=== PATIENT | female | born 1985 | race Hispanic/Latino ===

== ENCOUNTER 2023-07-22 16:17 | Emergency (ER) | payer SELFPAY ==
[2023-07-22 16:28] VITALS: BP 134/80
[2023-07-22] MEDS: NSS 1000 IV (18:37)
[2023-07-22] MEDS: ZOFRAN 4 MG IV (18:37)
[2023-07-22 18:47] LABS: % Basophils 0.2 % (0-2); % Eosinophils 0.2 % (0-6); % Immature Granulocytes 0.2 % (0-0.5); % Lymphocytes 15.2 % (20.5-51.1); % Monocytes 2.4 % (1.7-9.3); % Neutrophils 81.8 % (42.2-75.2); Absolute Lymphocytes 1.6 10^3/uL (1.2-3.4); Absolute Monocytes 0.3 10^3/uL (0.1-0.6); Absolute Neutrophils 8.7 10^3/uL (1.4-6.5); Hematocrit 30.3 % (37.0-47.0); Hemoglobin 9.4 g/dL (12.0-16.0); Mean Corpuscular Hgb 19.5 pg (27.0-31.0); Mean Platelet Volume 10.6 fL (7.4-10.4); Nucleated Red Blood Cells % 0 %; Platelet Count 293 10^3/uL (130-400); Red Blood Cell Count 4.81 10^6/uL (4.20-5.40); Red Cell Dist. Width 19.9 % (11.5-14.5); White Blood Cell Count 10.7 10^3/uL (4.8-10.8)
[2023-07-22 18:59] LABS: HCG, Serum Qualitative Screen Negative
[2023-07-22 19:08] LABS: ALT (SGPT) 20 U/L (0-35); AST (SGOT) 25 U/L (14-36); Albumin 4.2 g/dl (3.5-5.0); Alkaline Phosphatase 122 U/L (38-126); Blood Urea Nitrogen 14 mg/dl (7-17); Carbon Dioxide 23 mmol/L (22-30); Chloride 100 mmol/L (98-107); Glucose 235 mg/dl (70-99); Potassium 3.7 mmol/L (3.5-5.1); Sodium 133 mmol/L (135-145); Total Bilirubin 1.5 mg/dl (0.2-1.3); Total Protein 7.4 g/dl (6.3-8.2); eGFR > 60.00
[2023-07-22 19:35] LABS: Lipase 63 U/L (23-300)
[2023-07-22 20:43] LABS: Urine Albumin Negative (Neg - Trace); Urine Bilirubin Negative (Negative); Urine Character Clear (Clear); Urine Color Straw; Urine Glucose 3+ (Negative); Urine Ketone Negative (Negative); Urine Leukocyte Trace (Negative); Urine Nitrite Negative (Negative); Urine Occult Blood Negative (Negative); Urine Specific Gravity 1.015 (<1.030); Urine Urobilinogen Negative (Neg - 1+)
[2023-07-22 20:58] LABS: Urine Bacteria Few (Negative); Urine Red Blood Cell 0-2 /HPF (0-2); Urine White Cell 0-2 /HPF (0-5)
[2023-07-22 21:14] VITALS: BP 108/59
[2023-07-22 21:32] VITALS: BP 108/59
--- NOTE | 2023-07-22 23:20 | ED.GENMED ---
History of Present Illness
General
Chief Complaint: Abdominal Symptoms
Source: patient
Exam Limitations: none
Time Seen by Provider: 07/22/23 18:21
Nursing documentation reviewed up to this point in time: agreed with
Travel History
Have you had any contact with someone who has COVID-19?: No
Do you have any symptoms of coronavirus? Fever > 100 degrees, chills, cough, shortness of breath, sore throat, loss of taste or smell, muscle aches, or headache?: No
History of Present Illness
History of Present Illness:
Patient to ED with complaint of vomiting since this AM. Reports upper abd. pain. No fever/chills. Brought to ED by family for eval.
Past History
Past History
ED Past Medical History: IDDM
Review of Systems
Review of Systems
Allergies reviewed?: Yes
All Other Systems: ROS reviewed and negative except as documented in HPI and ROS
Constitutional: Reports no symptoms
EENT: Reports no symptoms
Respiratory: Reports no symptoms
Cardiac: Reports no symptoms
ABD/GI: Reports abdominal pain, nausea and vomiting
: Reports no symptoms
Musculoskeletal: Reports no symptoms
Skin: Reports no symptoms
Neurological: Reports no symptoms
Psychiatric: Reports no symptoms
Phy Exam
General Physical Exam
General Presentation: well appearing and moderate distress
General age: appears stated age
General Skin: warm and dry
General Habitus: normal
General Mental: alert
Pulmonary Exam
Pulmonary Exam: lungs clear and no respiratory distress
Gastrointestinal Exam
Gastrointestinal Exam: normal bowel sounds, soft, no organomegaly, non distended and no cva tenderness
Palpation: left upper quadrant: Moderate tenderness, left lower quadrant: No tenderness, right upper quadrant: Moderate tenderness and right lower quadrant: No tenderness
Musculoskeletal Exam
Musculoskeletal Exam: full ROM and neuro vasc intact
Skin Exam
Skin Exam: normal color, warm/dry and no rash
Psychiatric Exam
Psychiatric Exam: normal mood/affect
Course
Orders/Labs/Results
Orders:
Orders
07/22/23 18:28
Ondansetron Injectable [Zofran] 4 mg IV NOW STA
Test Result ONCE
US Abdomen Complete/Upper Urgent
Comment:
Reason For Exam: RUQ pain
07/22/23 18:29
0.9% Sodium Chloride 1000 ml [Nss] 1,000 ml IV BOLUS
07/22/23 18:33
Complete Blood Count/With Diff Urgent
Comprehensive Metabolic Panel Urgent
HCG, Serum Qualitative Screen Urgent
Lipase Urgent
07/22/23 20:37
Urinalysis Reflex To Culture Urgent
Date Specimen was Collected: 07/22/23
Time Specimen was Collected: 20:32
Urine Microscopic Reflex Cult Urgent
Abnormal Lab Results
07/22/23 07/22/23
18:33 20:37
Hgb 9.4 L g/dL
(12.0-16.0)
Hct 30.3 L %
(37.0-47.0)
MCV 63.0 L fL
(81.0-99.0)
MCH 19.5 L pg
(27.0-31.0)
MCHC 31.0 L g/dL
(33.0-37.0)
RDW 19.9 H %
(11.5-14.5)
MPV 10.6 H fL
(7.4-10.4)
Absolute Neuts (auto) 8.7 H 10^3/uL
(1.4-6.5)
Neutrophils % 81.8 H %
(42.2-75.2)
Lymphocytes % 15.2 L %
(20.5-51.1)
Sodium 133 L mmol/L
(135-145)
Creatinine 0.4 L mg/dL
(0.6-1.0)
Glucose 235 H mg/dl
(70-99)
Total Bilirubin 1.5 H mg/dl
(0.2-1.3)
Leukocyte Esterase Rfl Trace A
(Negative)
Urine Bacteria (Reflex) Few A
(Negative)
Urine Glucose 3+ A
(Negative)
07/22/23 18:33
07/22/23 18:33
Vital Signs
Initial and Last Documented VS:
Initial Vital Signs
Temp Pulse BP Pulse Ox
99.9 F 126 134/80 99
07/22/23 16:28 07/22/23 16:28 07/22/23 16:28 07/22/23 16:28
Last Documented Vital Signs
Temp Pulse Resp BP Pulse Ox
98.3 F 100 18 108/59 100
07/22/23 21:32 07/22/23 21:32 07/22/23 21:32 07/22/23 21:32 07/22/23 21:32
*Critical Care Note
Total Time (30-74mins, 75-104mins- exclusive of procedures): Not Applicable
Update Note
Update Note:
Improved after IVF, zofran. Feels much better and would like to go home. Labs, US reviewed with patient. No concerning findings noted. SHe is discharged home and will follow up with PCP. given instructions on s/s to return to ED and she is
agreeable to plan.
ED Attending Note
-
Portions of this chart may have been created with voice recognition software.� Occasional wrong word or��sound alike� substitutions may have occurred due to the inherent limitations of voice recognition software.
Discharge Plan
Departure
Patient Disposition: Home (Routine Discharge)
Date of Disposition: 07/22/23
Time of Disposition: 21:05
Patient with high blood pressure during this ER visit?: No
Condition: Good
Covid-19: Not Applicable
Discharge Problem:
Vomiting
Instructions: Clear Liquid Diet, Nausea and Vomiting, Adult (DC)
Prescriptions:
New
ondansetron 4 mg tablet,disintegrating
4 mg PO Q8H PRN (Reason: nausea and vomiting) 3 Days Qty: 10 0RF
Referrals:
[facility] [Outside] - Next open appointment
NONE,* [Family Provider] -
Activity Restrictions/Additional Instructions:
Return to the emergency department immediately for any changes in/worsening of your symptoms.
Interventions
Interventions:
*Risk Screen - Suicide Last Done: 07/22/23 21:32
*General Assessment Last Done: 07/22/23 16:33
*Neglect/Abuse Screening Last Done: 07/22/23 19:29
*Nursing Disposition Last Done: 07/22/23 21:32
XP-Klfzvd-Zhjkjbrzvz Assessment Last Done: 07/22/23 19:29
Discharge Date and Time
Discharge Date/Time: 07/22/23 21:34
Print Language: MAURITANIAN
== END 2023-07-22 21:34 | disposition home or self-care (01) ==
LOC: EMR 16:17
PROVIDERS: Nurse Practitioner; EMERGENCY PHYSICIAN Emergency Medicine
DX: R11.2 Nausea with vomiting, unspecified (principal); R10.10 Upper abdominal pain, unspecified; E11.9 Type 2 diabetes mellitus without complications; Z79.4 Long term (current) use of insulin; Z86.73 Personal history of transient ischemic attack (TIA), and cerebral infarction without residual deficits
CPT/HCPCS: 99284; 96374; 96361; 76700; 80053; 81003; 81015; 83690; 84703; 85025

== ENCOUNTER 2024-08-09 05:14 | Inpatient (IN) | payer OTHER, SELFPAY ==
[2024-08-09] VITALS (11 sets, daily range): BP systolic 93–129; BP diastolic 36–79; BMI 42.2; BMI 41.2
[2024-08-09] MEDS: TYLENOL 650 MG PO ×2 (00:45→22:24)
[2024-08-09 00:47] LABS: Urine Albumin 2+ (Neg - Trace); Urine Bilirubin Negative (Negative); Urine Glucose 4+ (Negative); Urine Ketone 3+ (Negative); Urine Leukocyte 3+ (Negative); Urine Nitrite Negative (Negative); Urine Occult Blood 4+ (Negative); Urine Urobilinogen 1+ (Neg - 1+)
[2024-08-09 00:50] LABS: Urine Character Cloudy (Clear); Urine Color Yellow
[2024-08-09 00:51] LABS: Hemoglobin 8.3 g/dL (12.0-16.0); Mean Corp Hgb Conc. 30.7 g/dL (33.0-37.0); Mean Corpuscular Hgb 18.6 pg (27.0-31.0); Mean Corpuscular Volume 60.5 fL (81.0-99.0); Mean Platelet Volume 10.2 fL (7.4-10.4); Platelet Count 277 10^3/uL (130-400); Red Blood Cell Count 4.46 10^6/uL (4.20-5.40); Red Cell Dist. Width 20.7 % (11.5-14.5); White Blood Cell Count 25.9 10^3/uL (4.8-10.8)
[2024-08-09 01:05] LABS: Lactic Acid 1.2 mmol/L (0.7-2.0)
[2024-08-09 01:06] LABS: HCG, Serum Qualitative Screen Negative
[2024-08-09 01:11] LABS: ALT (SGPT) 14 U/L (0-35); AST (SGOT) 18 U/L (14-36); Alkaline Phosphatase 154 U/L (38-126); Blood Urea Nitrogen 11 mg/dl (7-17); Calcium 8.6 mg/dl (8.4-10.2); Carbon Dioxide 25 mmol/L (22-30); Chloride 98 mmol/L (98-107); Glucose 346 mg/dl (70-99); Lipase 64 U/L (23-300); Potassium 3.4 mmol/L (3.5-5.1); Sodium 133 mmol/L (135-145); Total Bilirubin 1.4 mg/dl (0.2-1.3); Total Protein 7.5 g/dl (6.3-8.2); eGFR > 60.00
[2024-08-09 01:21] LABS: Urine Squamous Cell >30 /LPF (Few); Urine Urothelial Cell >30 /LPF (FEW)
[2024-08-09 01:22] LABS: Urine Amorphous Seen; Urine Bacteria Many (Negative); Urine Red Blood Cell >100 /HPF (0-2); Urine White Cell >100 /HPF (0-5)
[2024-08-09 01:26] LABS: % Basophils 0.4 % (0-2); % Eosinophils 0.3 % (0-6); % Neutrophils 83.3 % (42.2-75.2); Absolute Basophils 0.1 10^3/uL (0-0.2); Absolute Eosinophils 0.1 10^3/uL (0-0.7); Absolute Immature Granulocytes 0.3 10^3/uL (0-0.05); Absolute Lymphocytes 2.3 10^3/uL (1.2-3.4); Absolute Monocytes 1.6 10^3/uL (0.1-0.6); Absolute Neutrophils 21.6 10^3/uL (1.4-6.5); Nucleated Red Blood Cells % 0 %
[2024-08-09 01:27] LABS: Anisocytosis 2+; Microcytosis 2+; Normal RBC Morphology No
[2024-08-09 01:28] LABS: Hypochromasia 2+
[2024-08-09 01:29] LABS: Basophilic Stippling Occasional; Ovalocytes 1+; Polychromasia Occasional; Target Cells 1+; Toxic Granulation Occassional
--- NOTE | 2024-08-09 01:48 | ED.GENMED ---
History of Present Illness
General
Chief Complaint: Abdominal Pain
Time Seen by Provider: 08/09/24 01:26
History of Present Illness
History of Present Illness:
38-year-old female without any significant past medical history presenting to the emergency department for right-sided abdominal pain. Patient reports symptoms for the past 3 days. She reports associated body aches and fever. Pain radiates to her
back. Denies any urinary complaints. She is not presently on her menstrual cycle. Reports surgical history of cholecystectomy. Denies chest pain or difficulty breathing. Does report vomiting. Denies changes in stool. Denies additional acute
medical complaints.
Past History
Past History
ED Past Medical History: IDDM
Phy Exam
Physical Exam
Physical Exam:
General: Well-appearing, no clinical signs of dehydration, nontoxic and in no acute distress
HEENT: protecting airway
Neck: appears supple
CV: Tachycardic, regular rhythm
Resp: No accessory muscle use, no increased work of breathing
Abd: Soft and non-distended, generalized tenderness to the right side of the abdomen without rebound or guarding
Extremities: No deformities, no swelling, no erythema, pulses and sensation intact
Neuro: alert, no focal neurologic deficit
: deferred
Rectal: deferred
Psych: Normal affect
Skin: Intact
Sepsis
Sepsis Screening
Sepsis Assessment: Sepsis
Sepsis Screen
Sepsis Screen: Sepsis
Date: 08/09/24
Time: 14:16
Course
Orders/Labs/Results
Orders:
Orders
08/09/24 00:12
IV Insert/Care/Rem.- Treatment PRN
08/09/24 00:17
Test Result ONCE
08/09/24 00:35
Complete Blood Count/With Diff Urgent
Comprehensive Metabolic Panel Urgent
Direct Bilirubin Urgent
Comment: ADD ON
Ferritin Urgent
Comment: ADD ON
Glycohemoglobin (HgbA1c) Urgent
HCG, Serum Qualitative Screen Urgent
Comment: .
Iron Urgent
LDH Urgent
Comment: ADD ON
Lipase Urgent
Magnesium Urgent
Comment: ADD ON
Reticulocyte Count Urgent
Comment: ADD ON
Total Iron Binding Urgent
Urinalysis Reflex To Culture Urgent
Date Specimen was Collected: 08/09/24
Time Specimen was Collected: 00:12
Urine Microscopic Reflex Cult Urgent
Blood Culture Urgent
DEANDRA Source: Blood/Venous
Specimen Description:
Date Specimen was Collected: 08/09/24
Time Specimen was Collected: 00:13
Urine Culture Urgent
DEANDRA Source: U
Specimen Description:
Date Specimen was Collected: 08/09/24
Time Specimen was Collected: 00:12
08/09/24 00:43
Acetaminophen [Tylenol] 650 mg .ROUTE .STK-MED ONE
08/09/24 00:45
Acetaminophen [Tylenol] 650 mg PO NOW STA
08/09/24 00:47
Lactate Level [Lactic Acid] Urgent
Comment: .
08/09/24 01:27
CT Abd/pelvis W Iv Cont Urgent
Comment:
Reason For Exam: right sided pain, fever
08/09/24 01:33
0.9% Sodium Chloride 1000 ml [Nss] 1,000 ml IV BOLUS
Ketorolac [Toradol] 15 mg IV NOW STA
Ondansetron Injectable [Zofran] 4 mg IV NOW STA
08/09/24 03:35
Piperacillin/Tazo 4.5 Gram [Zosyn] 4.5 gram in 100 ml IV NOW
US Pelvis W Transvag Combined Urgent
Reason For Exam: fever, RLQ pain, enlarged ovarian cyst on CT
08/09/24 04:05
0.9% Sodium Chloride 1000 ml [Nss] 1,000 ml IV BOLUS
08/09/24 04:45
Admit/Transfer Patient As Directed
Co-Sign Provider:
Level of Care: Inpatient admission
Assign to:: Telemetry
Physician / Group: Seth
Diagnosis: Sepsis
Reason for Telemetry: Arrhythmia
Date to Stop Telemetry: 08/12/24
Time to Stop Telemetry: 11:00
Reason for Hospitalization: Sepsis
Expected length of stay greater than two midnights?: Yes
ELOS- Estimated Length of Stay in days: 3
I certify the patient meets the requirements for IP care: Yes
Code Status As Directed
Resuscitation Status: Full Code
PRN Pain Medication Management As Directed
May give lesser potent ordered pain med per pt: Yes
preference::
Protocol:: Medication orders for pain may be administered in a
manner that supports deferring to patient preference
when the pt is:
- Requesting an ordered lesser potent pain medication.
Least to most potent pain medications are defined
as: acetaminophen < NSAID < tramadol < opioids
(morphine, oxycodone, hydromorphone).
- Requesting a lesser dose of the same medication IF
ORDERED.
- Requesting a less intrusive route of administration
if both routes are prescribed by the provider (PO <
IV).
08/09/24 Breakfast
NPO
Allow oral meds: Yes
Allow clear liquids: Sips of Clears
08/09/24 06:24
Acetaminophen [Tylenol] 650 mg PO Q4HPRN PRN
Dextrose 50%-Water [Dextrose 50% Syringe] 12.5 grams IV [id number] PRN
Glucagon [GlucaGen] 1 mg IM PRN PRN
HYDROmorphone [Dilaudid] 0.5 mg IV Q4HPRN PRN
Lactated Ringers [Lr] 1,000 ml IV 150 mls/hr
Ondansetron Injectable [Zofran] 4 mg IV Q6HPRN PRN
08/09/24 06:24
Activity As Directed
Activity Level: Ambulate
Bedside Glucose Monitoring As Directed
Frequency: AC&HS
Additional Instructions:: Change to q6h if pt on TPN, tube feeding or not eating
I/O [Intake/ Output] As Directed
Frequency: Per unit guidelines
Vital Signs As Directed
Frequency: Per unit guidelines
Weight As Directed
Frequency: Daily
Oxygen Therapy [O2 Therapy] [RESP] Routine
Titrate/Wean O2 to maintain O2 sat greater than (%): 94
DX Deep Vein Thrombosis Video Routine
08/09/24 07:30
Insulin Aspart Corrective Mod [Novolog Flexpen-Moderate Resistance] See Protocol SC AC
08/09/24 08:00
Aspirin Chewable [Low Strength Aspirin] 81 mg PO DAILY
Ferrous Sulfate [Feosol] 325 mg PO BID
Insulin Glargine Lantus [Lantus] 12 units Subcutaneous Insulin Syringe [Syringe-Insulin] 0 unit SC DAILY
08/09/24 10:00
Piperacillin/Tazo 3.375 Gram [Zosyn] 3.375 gram in 50 ml IV Q6H
08/09/24 18:00
Enoxaparin Sodium [Lovenox] 40 mg SC QPM
08/10/24 06:00
Basic Metabolic Panel IN AM
Complete Blood Count/No Diff IN AM
Glycohemoglobin (HgbA1c) IN AM
Magnesium IN AM
08/12/24 11:00
DC Protocol for Telemetry ONCE
Abnormal Lab Results
08/09/24
00:35
WBC 25.9 H 10^3/uL
(4.8-10.8)
Hgb 8.3 L g/dL
(12.0-16.0)
Hct 27.0 L %
(37.0-47.0)
MCV 60.5 L fL
(81.0-99.0)
MCH 18.6 L pg
(27.0-31.0)
MCHC 30.7 L g/dL
(33.0-37.0)
RDW 20.7 H %
(11.5-14.5)
Abs Immat Gran (auto) 0.3 H 10^3/uL
(0-0.05)
Absolute Neuts (auto) 21.6 H 10^3/uL
(1.4-6.5)
Absolute Monos (auto) 1.6 H 10^3/uL
(0.1-0.6)
Immature Gran % 1.0 H %
(0-0.5)
Neutrophils % 83.3 H %
(42.2-75.2)
Lymphocytes % 9.0 L %
(20.5-51.1)
Sodium 133 L mmol/L
(135-145)
Potassium 3.4 L mmol/L
(3.5-5.1)
Creatinine 0.5 L mg/dL
(0.6-1.0)
Glucose 346 H mg/dl
(70-99)
Hemoglobin A1c 9.5 H %
(4.0-5.6)
Iron 21 L ug/dl
(37-170)
% Saturation 4 L %
(20-50)
Total Bilirubin 1.4 H mg/dl
(0.2-1.3)
Alkaline Phosphatase 154 H U/L
(38-126)
Lactate Dehydrogenase 269 H U/L
(120-246)
Urine Ketones 3+ A
(Negative)
Ur Occult Blood Reflex 4+ A
(Negative)
Leukocyte Esterase Rfl 3+ A
(Negative)
Urine RBC >100 A /HPF
(0-2)
Urine WBC (Reflex) >100 A /HPF
(0-5)
Urine Bacteria (Reflex) Many A
(Negative)
Urine Glucose 4+ A
(Negative)
Urine Albumin (Reflex) 2+ A
(Neg - Trace)
08/09/24 00:35
08/09/24 00:35
Vital Signs
Initial and Last Documented VS:
Initial Vital Signs
Temp Pulse Resp BP Pulse Ox
102.7 F H 132 20 129/79 98
08/09/24 00:04 08/09/24 00:04 08/09/24 00:04 08/09/24 00:04 08/09/24 00:04
Last Documented Vital Signs
Temp Pulse Resp BP Pulse Ox
98.3 F 94 16 111/60 98
08/09/24 12:15 08/09/24 12:15 08/09/24 12:15 08/09/24 12:15 08/09/24 12:15
MDM/Problems Addressed
MDM/Problems Addressed:
38 yo female with history of prior cholecystectomy presenting for right side abdominal pain with fever. Vital signs arrival are significant for fever and tachycardia.
On exam, patient is resting comfortably, overall nontoxic. However vital signs are concerning for sepsis, meeting SIRS criteria. Suspected source of infection being intra-abdominal. Potential differential considerations include appendicitis,
pyelonephritis, diverticulitis. Laboratory analysis sent including lactic acid and cultures. Patient with significant leukocytosis, however lactate within normal limits. Blood pressure remained stable without concern for severe sepsis or septic
shock. Will continue IV fluids and wait for CT imaging for antibiotic selection. Toradol administered for fever control and pain.
03:30 -CT shows a prominent right ovarian cyst. Otherwise normal appendix, no obstructive uropathy, no additional angst to explain patient's concern for underlying infection. In the setting of a large ovarian cyst, fever, elevated white blood cell
count, tubo-ovarian abscess is a consideration. Will obtain ultrasound imaging
*Critical Care Note
Total Time (30-74mins, 75-104mins- exclusive of procedures): Not Applicable
ED Attending Note
-
Portions of this chart may have been created with voice recognition software.� Occasional wrong word or��sound alike� substitutions may have occurred due to the inherent limitations of voice recognition software.
Discharge Plan
Departure
Patient Disposition: Admit
Presentation/result/management discussed w/ accepting MD/DO: Hospitalist
Condition: Fair
Discharge Problem:
Sepsis, Urinary tract infection
Interventions
Interventions:
*Risk Screen - Suicide Last Done: 08/09/24 00:04
*General Assessment Last Done: 08/09/24 04:30
*Neglect/Abuse Screening Last Done: 08/09/24 00:04
*ED- Fall Risk Assessment Last Done: 08/09/24 00:04
*ED COVID-19 Vaccine History Last Done: 08/09/24 00:04
*Nursing Disposition Last Done: 08/09/24 06:30
NO-Oogzur-Cjgdfscxko Assessment Last Done: 08/09/24 04:30
Discharge Date and Time
Discharge Date/Time: 08/09/24 06:31
[2024-08-09] MEDS: TORADOL 15 MG IV (02:23)
[2024-08-09] MEDS: ZOFRAN 4 MG IV (02:23)
[2024-08-09] MEDS: NSS 1000 IV ×2 (02:24→04:12)
[2024-08-09] MEDS: ZOSYN 100 IV (04:09)
--- NOTE | 2024-08-09 04:48 | HPS.HSE ---
Family Physician
-
Family Physician: NOT KNOW UNKNOWN - PT DOES
Chief Complaint
-
Abd pain
History of Present Illness
Patient is a 38y F with PMH significant for DM-II and prior TIA who presents to ED complaining of abdominal pain. Patient states that abdominal pain started on Sunday and has been persistent since that time. Pain is in the R side of the
abdomen without radiation to the chest, flank, etc. Patient reports associated N/V x multiple episodes of non-bloody emesis. Poor appetite. No diarrhea / bloody stool. Mild dysuria. Pos fever at home and shaking chills.
Patient presented to the ED with persistent symptoms for further evaluation.
Medical History
Past Medical History
Past Medical History: Reports Other
Additional Past Medical History:
DM-II
CVA / TIA
Iron Deficiency Anemia
Obesity
Past Surgical History: Reports None
Social History
Tobacco: Non-smoker
Alcohol: None
Drug: None
Family History
Family History: Not pertinent
Allergies / Home Medications
Allergies reflects when Allergies were last updated in [facility].
Home Medications with original date entered in [facility]
Allergy/Medication List:
Allergies
Allergy/AdvReac Type Severity Reaction Status Date / Time
No Known Allergies Allergy Unverified 07/22/23 16:36
Home Medications
aspirin 81 mg chewable tablet 81 mg PO DAILY 08/09/24
ferrous sulfate 325 mg (65 mg iron) tablet 325 mg PO DAILY 08/09/24
insulin aspart U-100 100 unit/mL (3 mL) subcutaneous pen 1 sliding scale dose SC DIRECTED 08/09/24
Patient unable to tell me names / doses of insulin products.
Review of Systems
-
History Source: Patient and Family
A 12 point ROS was completed and negative except as noted: Yes
Constitutional: Reports Fever, Fatigue and Chills
EENT: Denies Sore Throat
Respiratory: Denies Cough or Trouble Breathing
Cardiac: Denies Chest Pain or Palpitations
Abdomen/GI: Reports Abdominal Pain, Nausea, Vomiting and Anorexia; Denies Diarrhea, Constipated or Bloody Stools
: Reports Dysuria and Other (Currently having menses.); Denies Frequency or Flank Pain
Musculoskeletal: Denies Joint Pain or Edema
Neurological: Denies Dizzy or Headache
Physical Exam
Vital Signs
Vital Signs
Temp Pulse Resp BP Pulse Ox
98.7 F 104 20 93/36 96
08/09/24 04:35 08/09/24 02:34 08/09/24 02:34 08/09/24 04:35 08/09/24 04:36
Physical Exam
General: Other (38y F in no acute distress.)
HEENT: Moist mucous membranes, PERRLA and Other (Thick neck.)
Respiratory: Clear; No Wheezes, Rales or Rhonchi
Cardiac: S1/S2, Regular Rhythm and Murmur (II/ JEREMY)
GI: Other (Obese, Pos R-sided abdominal tenderness - mostly in the RLQ. No rebound / guarding. Pos BS.)
Musculoskeletal: No Clubbing, No Cyanosis and No Edema
Neuro: AO x 3
Laboratory Results
-
08/09/24 00:35
08/09/24 00:35
Laboratory Results
Lactic Acid 1.2 mmol/L (0.7-2.0) 08/09/24 00:47
Total Bilirubin 1.4 mg/dl (0.2-1.3) H 08/09/24 00:35
AST 18 U/L (14-36) 08/09/24 00:35
ALT 14 U/L (0-35) 08/09/24 00:35
Alkaline Phosphatase 154 U/L (38-126) H 08/09/24 00:35
Lipase 64 U/L (23-300) 08/09/24 00:35
Impression/Plan
-
A/P: Patient is a 38y F with PMH significant for DM-II and obesity who presents to ED complaining of abdominal pain, N/V and fevers / chills.
Sepsis
- Admit for further evaluation and treatment.
- Patient presents with fever to 102.7, tachycardia, tachypnea and leukocytosis.
- Abdominal pain with CT findings showing R ovarian cyst and otherwise fairly unremarkable.
- Suspect source of infection UTI / pyelo versus TOA.
- US pending for further evaluation of R adnexal area.
- Urinalysis with gross blood, many squamous cells and negative nitrates. Follow-up culture data.
- Continue IV Zosyn for now pending culture / imaging data.
- MARINA [employer]Y D[employer]NAGER consult if warranted based on US findings.
- Supportive care including IVFs, antipyretics, pain control, etc.
- Follow for clinical improvement.
DM-II
- Uncontrolled likely due to acute infection / sepsis.
- No elevated anion gap / evidence of DKA.
- Basal : bolus insulin regimen and adjust as needed for improved glycemic control.
- Update A1C.
Iron Deficiency Anemia
- Stable. Patient notes that she is currently menstruating.
- Continue iron supplementation.
- Follow H&H for changes.
History of CVA / TIA
- Remote episode with no residual deficits.
- Continue ASA daily.
Morbid Obesity due to excess calories
- Affects all aspects of care.
- Encourage healthy diet and increased exercise with goal of weight loss.
DVT Prophylaxis: Lovenox
Code Status: Full
--- NOTE | 2024-08-09 06:33 | PTCARENOTE ---
Received patient from ER, stable vitals. ST in 100s on tele. POC reviewed with patient
[2024-08-09] MEDS: LR 1000 IV (07:11)
[2024-08-09 07:24] LABS: Reticulocyte Count 1.2 % (0.4-2.8)
[2024-08-09] MEDS: KCL 160 MEQ IV (07:39)
[2024-08-09 07:49] LABS: Glucose - Point of Care 274 mg/dl (70-99)
--- NOTE | 2024-08-09 07:51 | W.PN.HOSP.TC ---
Today's Communication/Plan
-
See PN
Assessment / Plan
Assessment / Plan
38yo F with Hx of DM, cholecystectomy 6 months ago came with sudden onset of lower abdominal pain and fever 3 days before admission. On admission found some RUQ tenderness and CT abd with R ovarian cyst as well as significant pyuria
A/P:
#Sepsis on admission most likely 2/2 UTI
#Bilirubin and Alk.phos elevation
#Prominent R ovarian cyst
Pending official CT read and TV US results to exclude tuboovarian abscess
Check Chlamidia and gonorhea PCR
test neg
follow Ucx
Only one set of Bcx sent in ED
follow CBC
Zosyn
US RUQ to exclude cholangitis with choledocholithiasis
#Hx of TIA
not on Lipitor - start
#MAMIE
#DM type 2 with unspecified complications
#Morbid obesity
Decrease calorie intake
Accuchecks, Insulin SS, DM diet, check HgbA1c
Check iron
#Hypokalemia
follow and replete as needed
DVT ppx lovenox
Full code
I have spent at least 58min reviewing chart, test results, communication with family and procviding direct patient care
Anticipated Discharge: > 48 hours
Subjective/Interval History
-
Date of Service: August 09, 2024
Objective Data
-
Labs:
Laboratory Results
08/09/24
00:35
WBC 25.9 H
Hgb 8.3 L
Hct 27.0 L
Plt Count 277
Sodium 133 L
Potassium 3.4 L
Chloride 98
Carbon Dioxide 25
BUN 11
Creatinine 0.5 L
Glucose 346 H
Calcium 8.6
Total Bilirubin 1.4 H
AST 18
ALT 14
Alkaline Phosphatase 154 H
Vital Signs:
Vital Signs
Temp Pulse Resp BP Pulse Ox
98.5 F 100 16 104/57 98
08/09/24 06:25 08/09/24 06:25 08/09/24 06:25 08/09/24 06:25 08/09/24 06:25
Review of Systems
-
History Source: Patient
All other systems: Reviewed and negative
Abdomen/GI: Reports Abdominal Pain (suprapubic)
Physical Exam
-
General: No Apparent Distress, Comfortable and Morbidly Obese
HEENT: Normocephalic
Respiratory: Clear to Auscultation
Cardiac: Regular Rhythm
GI: Soft, Nondistended and Tender (RUQ)
Genito-urinary: No Costovertebral Tender
Musculoskeletal: No Clubbing, No Cyanosis and No Edema
Neuro: Awake, Alert, Oriented and AO x 3
Psych: Calm
[2024-08-09 07:54] LABS: Direct Bilirubin 0.2 mg/dl (0.0-0.4); Iron 21 ug/dl (37-170); LDH 269 U/L (120-246); Magnesium 1.8 mg/dl (1.6-2.3)
[2024-08-09] MEDS: NOVOLOG FLEXPEN-MODERATE RESISTANCE 5 UNITS SC ×3 (08:02→17:34)
[2024-08-09] MEDS: LANTUS 0.12 UNITS SC (08:02)
[2024-08-09 08:03] LABS: Percent Saturation 4 % (20-50); Total Iron Binding Capacity 434 ug/dl (265-497)
[2024-08-09] MEDS: LOW STRENGTH ASPIRIN 81 MG PO (08:03)
[2024-08-09] MEDS: FEOSOL 325 MG PO ×2 (08:03→21:08)
[2024-08-09 08:17] LABS: Glycohemoglobin (HgbA1c) 9.5 % (4.0-5.6)
[2024-08-09 08:45] LABS: Ferritin 49.4 ng/ml (6.24-137)
[2024-08-09] MEDS: ZOSYN 50 IV ×3 (09:13→21:08)
--- NOTE | 2024-08-09 10:59 | CM ---
CM following re: discharge planning.
Reviewed pt's chart, met with pt and pt's son at bedside.
Pt is a 38 year old Greenlandic speaking female, admitted with primary dx of Sepsis.
Pt reports she was born and raised in [place], arrived to [place] [place] 19 years ago and remains as undocumented emigrant. Pt reports she lives with and 2 children 2SH, 2 steps to enter. 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
PCP: [facility].
Pharmacy: [facility].
D/C plan: return back home with family support and to follow up at [facility].
CM will follow with discharge plan updates as hospitalization progresses
--- NOTE | 2024-08-09 11:28 | CON.MD ---
Consultation - Medical
-
38 yo female with LMP currently, who was admitted last night due to fever, body aches and right sided abdominal pain. She was admitted with diagnosis of sepsis with leukocytosis and fever 102. Has abnormal Urinalysis and being treated for
UTI/sepsis with IV Zosyn.
CT imaging noted right adnexal cyst 3.8 cm, no stranding, normal appendix. Pelvic TVUS was performed this am and demonstrates right ovary , mild heterogeneous with 3.0 cm mildly complex right adnexal cyst. There was some asymmetric enlargement but
bilateral blood flow was noted. Personal Finance Instructor consult was requested due to radiologist mentioning in report that intermittent torsion could have this appearance.
History obtained from conversation with Dr. Brett Ann who admitted her as well as record and from history taking myself with assistance of Language Line Wolof- Interpretor Nereyda CORONADO.
PMH: DM, TIA, obesity, iron deficicency
PSH: cholecystectomy
ALL: NKDA
Meds: insulin, aspirin, iron.-reviewed
SOchx: Neg tobacco, Etoh, drug use
Famhx: noncoontributory
OBhx: 3 no miscarriages or terminations
Personal Finance Instructor Hx: denies STI, PID hx. [facility] Had I[facility] to help manage her menstrual flow. Denies dysmenorrhea.
ROS: nausea/vomiting last 2 days (none today), + menses today-not painful, + fever yesterday, +RLQ abdominal pain for 3-4 days. Pain reported 6/10- no better/no worse.
PE: Pt was sleeping when I came to room. Appears comfortable, NAD. Does not appear to be in any pain with visul inspection. Moves easily in bed without expressing having pain. Her son, Nemesio, is with her.
Vitals. Tmax 102.7 at midnight Tc 98.8 BP 107/66
COr: regular rate
Pulm: clear b/l
Abd: soft , nondistended. + tenderness midline abdomen toward RLQ. No rigidity.No rebound
Cervix: no CMT. Uterus is top normal size approx 12 cm, mobile, slightly tender with bimanual exam.
Adenxa: tenderness in right lower quadrant.
Vagina: small amount of menstrual blood, no odor.
Ext: no calf pain
Imaging:
CT and Pelvic US reviewed: 3.8 cm cystic lesion right ovary 3.6cm, no stranding.Normal appendix.
Pelvic US: 12.3 x 4.2 x 5.9 cm , homogeneous, no lesion. EMS 7mm. IUD present in lower endometrial canal. Right ovary 7.2 x 5.1 x 4.6 cm, mild heterogeneous. 2.9 x 3.0 x 2.7cm mild complex cyst in right ovary. LEft ovary 3.3 x 2.5 x 2.2 cm.
Arterial and venous flow are noted in both ovaries. There is asymmetric enlargement and mild heterogeneity in right ovary which can be seen in intermittent torsion.
WBC 25.9 H/H: 8.3/27.0 plt 277
creatinine 0.5
lactic acid 1.2
BHCG negative
US: +# leuks +3 ketones, neg nitrites, 4+ occult blood, RBC>100, WBC> 100, squamous cells > 30, bacteria-many
blood cultures and urine cultures pending.
Impression:
1. Right lower quadrant pain
2. Right adnexal cyst- etiologies include hemorrhagic cyst, intermittent torsion, TOA (not suggested by radiology findings or on discussion with radiologist, Dr. Alexis Chen, whom I called.
3. Sepsis- causes include pyelonephritis/Complicated UTI. TOA is consideration though radiology imaging did not suggest this and radiologist did not feel this was a TOA. Consideration for necrotic ovary ( if there was complete torsion) can be
considered but felt less likely based on imaging appearance.
4. UTI/pyelonephritis-currently on Zosyn IV
Plan: Patient's exam is not highly suspicious for ovarian torsion. In fact, she had to be aroused from sleep and has not received pain medicine since last night per RN. She appears comfortable when sitting unprovoked. Examination demonstrates
mild to moderate tenderness.
Her pain has been stable at a 6/10 and has not improved or worsened.
I discussed ovarian cyst findings with her. Discussed the possible etiologies. I explained that most ovarian cysts can be managed expectantly and often resolve on their own. Since examination does not suggest acute torsion, I feel it is prudent
to observe her and continue with antibiotics. Recommend rechecking CBC with differential in AM. If her pain worsens or if she fails to improve in terms of leukocytosis, then diagnostic laparoscopy would be recommended. I discussed etiologies with
the radiologist. He did not feel that CAT scan or ultrasound findings were suggestive of tubo-ovarian abscess. Certainly would be beneficial for the patient's to have at least 24 hours of antibiotics prior to surgery unless there was an emergent
reason for the procedure. She is presently stable and being managed with antibiotics.
These options were reviewed with the patient via tool and cutter grinder. She agrees for expectant management.
I will plan to keep her n.p.o. after midnight in the event we decide to proceed with diagnostic laparoscopy tomorrow. She was counseled that if surgery were to be performed it would be a diagnostic laparoscopy with possible right ovarian
cystectomy, possible collection of cultures, possible RSO. She was counseled about benefits risks and complications related to surgery which include but are not limited to infection, bleeding, injury to any internal tissue structures or organs,
possible need to remove ovary. She feels comfortable with expectant management for now. I asked her to contact the nurse if she had any changes or worsening of her symptoms.
Time spent included conversations with radiologist, internal medicine hospitalist x 2, anesthesia MD and [id number] time with the patient using research clerk and documentation on the day of visit was in excess of 70 minutes.
[2024-08-09 12:30] LABS: Glucose - Point of Care 265 mg/dl (70-99)
[2024-08-09] MEDS: LR IV ×2 (13:32→17:17)
[2024-08-09] MEDS: FERRLECIT 110 MG IV (13:32)
[2024-08-09 16:46] LABS: Glucose - Point of Care 262 mg/dl (70-99)
--- NOTE | 2024-08-09 17:19 | W.PN.UPDATE ---
Update Note
Progress Note Update
Came to check on patient. USed [place] Language Line -Interpretor Nya [id number]
Pt appears comfortable playing with her son's hair and resting. , 18yo sone, 8yo daughter and 6 yo son in room.
She reports feeling much better. Describes pain as a 1 out of 10 on pain scale.
Has not taken pain meds since maybe sometime this am.
Has been taking clears today. Feels hungry. No nausea/vomiting.
PE: VSS afeb since 01:00
Gen; appears comfortable in no acute distress. Laughing and smiling.
Abd: soft, min tenderness no acute peritoneal signs.
A/P:
Right ovarian cyst 3.8cm
Does not examine to have acute abdomen, ovarian torsion.
Improving on abx therapy.
Will re-evaluate her pain and labs tomorrow. Discussed if worsening pain or depending on labs possible dx laparoscopy. If clinically improved, may not need dx laparoscopy and may be able to follow as an outpt. Pt and family had no questions and
expressed understanding of plan.
[2024-08-09 21:58] LABS: Glucose - Point of Care 282 mg/dl (70-99)
[2024-08-10 03:25] VITALS: BP 106/79
[2024-08-10] MEDS: ZOSYN 50 IV ×4 (03:43→21:56)
[2024-08-10 07:21] VITALS: BP 124/64
[2024-08-10 07:22] LABS: ALT (SGPT) 14 U/L (0-35); AST (SGOT) 21 U/L (14-36); Albumin 3.4 g/dl (3.5-5.0); Alkaline Phosphatase 113 U/L (38-126); Blood Urea Nitrogen 5 mg/dl (7-17); Calcium 8.5 mg/dl (8.4-10.2); Carbon Dioxide 31 mmol/L (22-30); Chloride 103 mmol/L (98-107); Estimated Creatinine Clearance > 125 ml/min; Glucose 259 mg/dl (70-99); Magnesium 2.1 mg/dl (1.6-2.3); Potassium 3.5 mmol/L (3.5-5.1); Sodium 139 mmol/L (135-145); Total Bilirubin 0.9 mg/dl (0.2-1.3); Total Protein 6.6 g/dl (6.3-8.2); eGFR > 60.00
[2024-08-10 07:24] LABS: % Basophils 0.4 % (0-2); % Eosinophils 0.3 % (0-6); % Lymphocytes 14.1 % (20.5-51.1); % Monocytes 6.4 % (1.7-9.3); % Neutrophils 77.8 % (42.2-75.2); Absolute Basophils 0.1 10^3/uL (0-0.2); Absolute Eosinophils 0.1 10^3/uL (0-0.7); Absolute Immature Granulocytes 0.2 10^3/uL (0-0.05); Absolute Lymphocytes 2.3 10^3/uL (1.2-3.4); Absolute Neutrophils 12.6 10^3/uL (1.4-6.5); Hematocrit 27.1 % (37.0-47.0); Hemoglobin 8.1 g/dL (12.0-16.0); Mean Corp Hgb Conc. 29.9 g/dL (33.0-37.0); Mean Corpuscular Hgb 18.4 pg (27.0-31.0); Mean Corpuscular Volume 61.5 fL (81.0-99.0); Nucleated Red Blood Cells % 0.1 %; Platelet Count 288 10^3/uL (130-400); Red Blood Cell Count 4.41 10^6/uL (4.20-5.40); White Blood Cell Count 16.2 10^3/uL (4.8-10.8)
[2024-08-10 07:27] LABS: Glucose - Point of Care 273 mg/dl (70-99)
--- NOTE | 2024-08-10 08:36 | W.PN.OBG.DWH ---
Today's Communication / Plan
-
Continue IV Zosyn
CT tomorrow to eval for improvement.
Reviewed with Dr. Cunha
Assessment/Plan
-
1. Right adnexal cyst
2. Sepsis- causes include UTI/pyleo, TOA is a consideration. Primary service did not feel UTI was strong dx since she is relatively asymptomatic from that perspective.
-GC/CT negative
-Would recommend continuing IV abx Zosyn IV
She is clinically improving by exam and WBC. Would recommend continuing present medical mgmt for now. If clinically worsens, has return of acute pain, persistent fevers, then may need to consider alternative intervention.
Recommend repeat imaging tomorrow and consider for IRAD drainage/cultures if there is concern for TOA.
Discussed with patient.
May have diet today. Consider NPO overnight for CT in case need IRAD involvement.
Subjective Data
-
Spoke with Joy Fisher through compliance aide Language Line Romansh Levar [id number].
Patient reports she is feeling so much better. Denies having any abdominal pain.
Feels hungry.
Denies fever or chills, abdominal or pelvic pain. Denies dysuria, urinary urgency or frequency.
Period is ending
No vaginal bleeding or abnormal d/c.
Objective Data
-
Laboratory Results
08/10/24 06:25
08/10/24 06:25
Vital Signs
Temp Pulse Resp BP Pulse Ox
98.3 F 84 20 124/64 98
08/10/24 07:21 08/10/24 07:21 08/10/24 07:21 08/10/24 07:21 08/10/24 07:21
VSS afeb this am Temp 101.6 at 23:29 last pm
General: Nontoxic appearance, smiling and appears comfortable
Cor regular
Pulm: clear
Abd: soft, ND, nontender with deep palpation
ext: no calf pain
urine culture is pending.
blood culture neg
GC/CT negative
[2024-08-10] MEDS: LANTUS 0.12 UNITS SC (08:40)
[2024-08-10] MEDS: FEOSOL 325 MG PO ×2 (08:40→20:57)
[2024-08-10] MEDS: LOW STRENGTH ASPIRIN 81 MG PO (08:41)
[2024-08-10] MEDS: NOVOLOG FLEXPEN-MODERATE RESISTANCE 5 UNITS SC ×2 (09:28→16:48)
[2024-08-10 10:36] VITALS: BP 116/68
[2024-08-10 11:35] LABS: Glucose - Point of Care 309 mg/dl (70-99)
[2024-08-10] MEDS: NOVOLOG FLEXPEN-MODERATE RESISTANCE 7 UNITS SC (12:02)
--- NOTE | 2024-08-10 12:33 | W.PN.HOSP.TC ---
Today's Communication/Plan
-
Improving -cont Abx
CT abd repeat as per SENIOR DIRECTOR in AM, keep NPO for possible IRAD if persitent cyst on CT that needs drainage
Assessment / Plan
Assessment / Plan
38yo F with Hx of DM, cholecystectomy 6 months ago came with sudden onset of lower abdominal pain and fever 3 days before admission. On admission found some RUQ tenderness and CT abd with R ovarian cyst as well as significant pyuria
A/P:
#Sepsis on admission can be 2/2 R ovarian hemorrhagic cyst (cannot exclude infected) vs UTI, however patient currently on periods
#Bilirubin and Alk.phos elevation
#COncern for early R ovarian torsion
SENIOR DIRECTOR: low concern for torsion, recommend repeat CT 08/10/24 and consider for IR drainage if there�s a persistent concern
Pending official CT read and TV US results to exclude tuboovarian abscess
NEg for Chlamidia and gonorhea PCR
test neg
follow Ucx
Only one set of Bcx sent in ED
follow CBC
Zosyn
US RUQ to excluded choledocholithiasis
#Hx of TIA
not on Lipitor - start
#MAMIE
#DM type 2 with unspecified complications
#Morbid obesity
Decrease calorie intake
Accuchecks, Insulin SS, DM diet, check HgbA1c
Check iron
#Hypokalemia
follow and replete as needed
DVT ppx lovenox
Full code
I have spent at least 58min reviewing chart, test results, communication with family and procviding direct patient care
Anticipated Discharge: > 48 hours
Subjective/Interval History
-
Date of Service: August 10, 2024
Objective Data
-
Labs:
Laboratory Results
08/10/24
06:25
WBC 16.2 H
Hgb 8.1 L
Hct 27.1 L
Plt Count 288
Sodium 139
Potassium 3.5
Chloride 103
Carbon Dioxide 31 H
BUN 5 L
Creatinine 0.4 L
Glucose 259 H
Calcium 8.5
Total Bilirubin 0.9
AST 21
ALT 14
Alkaline Phosphatase 113
Vital Signs:
Vital Signs
Temp Pulse Resp BP Pulse Ox
98.6 F 102 18 116/68 99
08/10/24 10:36 08/10/24 10:36 08/10/24 10:36 08/10/24 10:36 08/10/24 10:36
I&O
08/09/24 08/10/24 08/11/24
06:59 06:59 06:59
Intake Total 100 / 100
Balance 100 / 100
Review of Systems
-
History Source: Patient
All other systems: Reviewed and negative
Physical Exam
-
General: No Apparent Distress
HEENT: Normocephalic
Respiratory: Clear to Auscultation
GI: Soft, Nontender and Nondistended
Musculoskeletal: No Clubbing, No Cyanosis and No Edema
Neuro: Awake, Alert, Oriented and AO x 3
Psych: Calm
[2024-08-10] MEDS: FERRLECIT 110 MG IV (13:40)
[2024-08-10 15:08] VITALS: BP 121/75
[2024-08-10 16:04] LABS: Glucose - Point of Care 269 mg/dl (70-99)
[2024-08-10 19:23] VITALS: BP 108/56
[2024-08-10 21:01] LABS: Glucose - Point of Care 255 mg/dl (70-99)
[2024-08-10 23:10] VITALS: BP 103/54
[2024-08-11] VITALS (13 sets, daily range): BP systolic 81–137; BP diastolic 43–71; BMI 40.8
[2024-08-11] MEDS: ZOSYN 50 IV ×2 (04:02→10:17)
[2024-08-11 05:56] LABS: Glucose - Point of Care 234 mg/dl (70-99)
[2024-08-11] MEDS: OMNIPAQUE 50 ML PO (06:02)
[2024-08-11] MEDS: NOVOLOG FLEXPEN-MODERATE RESISTANCE 3 UNITS SC ×2 (06:09→11:58)
[2024-08-11] MEDS: LANTUS 0.12 UNITS SC (08:17)
[2024-08-11] MEDS: FEOSOL 325 MG PO (08:17)
[2024-08-11] MEDS: LOW STRENGTH ASPIRIN 81 MG PO (08:17)
[2024-08-11 08:55] LABS: % Basophils 0.6 % (0-2); % Eosinophils 0.6 % (0-6); % Lymphocytes 16.5 % (20.5-51.1); % Monocytes 6.1 % (1.7-9.3); % Neutrophils 73.2 % (42.2-75.2); Absolute Basophils 0.1 10^3/uL (0-0.2); Absolute Eosinophils 0.1 10^3/uL (0-0.7); Absolute Immature Granulocytes 0.5 10^3/uL (0-0.05); Absolute Lymphocytes 2.9 10^3/uL (1.2-3.4); Absolute Monocytes 1.1 10^3/uL (0.1-0.6); Absolute Neutrophils 12.9 10^3/uL (1.4-6.5); Hematocrit 26.4 % (37.0-47.0); Hemoglobin 7.8 g/dL (12.0-16.0); Mean Corp Hgb Conc. 29.5 g/dL (33.0-37.0); Mean Corpuscular Hgb 18.1 pg (27.0-31.0); Mean Corpuscular Volume 61.1 fL (81.0-99.0); Mean Platelet Volume 10.2 fL (7.4-10.4); Nucleated Red Blood Cells % 0.7 %; Platelet Count 331 10^3/uL (130-400); Red Blood Cell Count 4.32 10^6/uL (4.20-5.40); Red Cell Dist. Width 20.6 % (11.5-14.5); White Blood Cell Count 17.6 10^3/uL (4.8-10.8)
[2024-08-11 09:02] LABS: ALT (SGPT) 19 U/L (0-35); AST (SGOT) 23 U/L (14-36); Albumin 3.4 g/dl (3.5-5.0); Alkaline Phosphatase 114 U/L (38-126); Blood Urea Nitrogen 5 mg/dl (7-17); Calcium 8.5 mg/dl (8.4-10.2); Carbon Dioxide 29 mmol/L (22-30); Chloride 102 mmol/L (98-107); Estimated Creatinine Clearance > 125 ml/min; Glucose 223 mg/dl (70-99); Potassium 3.4 mmol/L (3.5-5.1); Sodium 137 mmol/L (135-145); Total Bilirubin 0.9 mg/dl (0.2-1.3); Total Protein 6.7 g/dl (6.3-8.2); eGFR > 60.00
[2024-08-11] MEDS: KCL 270 MEQ IV (11:07)
[2024-08-11 11:21] LABS: Glucose - Point of Care 238 mg/dl (70-99)
--- NOTE | 2024-08-11 12:56 | W.PN.HOSP.TC ---
Addendum entered and electronically signed by Stanley Cooley MD 08/11/24 14:26:
Discussed with PROFESSOR OF ECONOMICS agree with ovarian cyst drainage with IRAD if possible
Also concern for anemia and per PROFESSOR OF ECONOMICS not related to menorrhagia
Will check heme test
ID input
Original Note:
Today's Communication/Plan
-
ID eval
Irad input
IV abx for now
npo in case goes for drainage otherwise restart diet
bowel regimen
Assessment / Plan
Assessment / Plan
38yo F with Hx of DM, cholecystectomy 6 months ago came with sudden onset of lower abdominal pain and fever 3 days before admission. On admission found some RUQ tenderness and CT abd with R ovarian cyst as well as significant pyuria
A/P:
#Sepsis on admission can be 2/2 R ovarian hemorrhagic cyst (cannot exclude infected) vs UTI, vs Tubovarian abscess
#Bilirubin and Alk.phos elevation
PROFESSOR OF ECONOMICS: low concern for torsion, recommend repeat CT 08/10/24 to further assess
Repeat CT abdomen pelvis with persistent asymmetric enlargement of right ovary with 3.7 centimeter cystic focus posteriorly.
NEg for Chlamydia and gonorrhea PCR
test neg
follow Ucx
Only one set of Bcx sent in ED
follow CBC
Zosyn
US RUQ prior cholecystectomy without evidence of biliary duct dilatation
White count seems to be downtrending
Last fever noted on 08/09 at 23:29
Will ask ID for input
Will ask [facility] if ovarian cyst is amenable to drainage or not
#Hypokalemia
-replete/prn
#Hx of TIA
not on Lipitor - start
#MAMIE
-severely low iron sats
-start IV iron
#DM type 2 with unspecified complications
Decrease calorie intake
Accuchecks, Insulin SS, DM diet, check HgbA1c at 9.5
#Morbid obesity
#Hepatic steatosis
#Hypokalemia
follow and replete as needed
DVT ppx lovenox
Full code
Anticipated Discharge: > 48 hours
Subjective/Interval History
-
Date of Service: August 11, 2024
denies abd or pelvis pain
Objective Data
-
Labs:
Laboratory Results
08/11/24
08:24
WBC 17.6 H
Hgb 7.8 L
Hct 26.4 L
Plt Count 331
Sodium 137
Potassium 3.4 L
Chloride 102
Carbon Dioxide 29
BUN 5 L
Creatinine 0.4 L
Glucose 223 H
Calcium 8.5
Total Bilirubin 0.9
AST 23
ALT 19
Alkaline Phosphatase 114
Vital Signs:
Vital Signs
Temp Pulse Resp BP Pulse Ox
98.6 F 85 18 97/43 99
08/11/24 10:44 08/11/24 10:44 08/11/24 10:44 08/11/24 10:44 08/11/24 10:44
I&O
08/10/24 08/11/24 08/12/24
06:59 06:59 06:59
Intake Total 100 / 100 1420 / 1420
Balance 100 / 100 1420 / 1420
Physical Exam
-
General: No Apparent Distress and Morbidly Obese
HEENT: Normocephalic
Respiratory: Clear to Auscultation
GI: Soft, Nontender, Nondistended and Normal Bowel Sounds
Musculoskeletal: No Clubbing, No Cyanosis and No Edema
Neuro: Awake, Alert, Oriented and AO x 3
Psych: Calm
Data Reviewed
-
Total Time Spent with Patient (in minutes): 55
--- NOTE | 2024-08-11 13:35 | CM ---
Chart reviewed patient has no insurance, home with spouse and family when stable, patient to follow up with the [facility] after discharge.
Plan; Home when stable.
--- NOTE | 2024-08-11 13:57 | CON.ID ---
Addendum entered and electronically signed by Griselda Alvarez MD 08/11/24 17:19:
I personally performed a history and physical exam of the patient and discussed management with the resident. I reviewed the resident's note and agree with the documented findings and plan of care HPI/CC with the following additions/corrections:
Physical Exam
Constitutional: No Acute Distress, Comfortable and Non-toxic
Cardiovascular: Regular Rate and S1/S2; Negative Murmur or Rub
Pulmonary: Clear and Symmetric; Negative Wheezes, Rales or Rhonchi
Gastrointestinal: Soft, Non Tender, Normal Bowel Sounds and Other (Obese abdomen)
Genito-Urinary: Right Ovarian abscess drain -minimal serosanguinous fluid)
Skin: Warm and Dry; Negative Rash or Jaundice
A&P
Likely Ovarian Abscess
Class III obesity
- abscess cultures for aerobic, anaerobic and gc/chlamydia PCR
- blood cultures x2
- urine GC chlamydia negative however can be a false negative
- agree with ceftriaxone 2 g IV Q24H + doxycycline 100 mg PO Q12H + metronidazole 500 mg PO Q12H; zosyn plus doxycycline would also be an effective regimen at this BMI
- likely transition to oral therapy in the next day or two pending gram stain and repeat PCR results
- note that ovarian abscesses/tuboovarian abscesses can be spontaeous and due to endogenous gifty. They are often associated with IUDs and if the patient is improving the devices generally do not require removal. Given her marked anemia, there is
some real benefit (including to quality of life) to retaining the IUD
AW
Original Note:
Consultation
-
Date/Time Consultation Requested: 08/11/2024 13:02
Date/Time Consultation Performed: 08/11/2024 15:08
Requesting Provider: Stanley Cooley MD
Performing Provider: Griselda Alvarez MD
Reason for Consultation: Abdominal pain
Chief Complaint / Past History
Chief Complaint
Abdominal pain, fever
History of Present Illness
Ms. Natalia Mock is a 38-year-old female with PMH of DM type II, who presented to the ED on 08/09 with 3-day history of right-sided abdominal pain. Pain was associated with fever, chills, nausea and vomiting. She is sexually active with one
partner, uses IUD for contraception, denies recurrent history of STDs, and urinary symptoms. Her only abdominal surgery was cholecystectomy 6 years ago.
While she was in the ED, she has significant fever with temperature of 102.7, pulse 132, respiratory 20, BP 129/79, saturating at 98% on room air. Significant leukocytosis with left shift was noted on labs with significantly elevated blood glucose
at 346. Beta-hCG was negative, and a subsequent CT abdomen/pelvis with IV and oral contrast reported an enlarged right ovary 6.8 cm with a 3.6 cm cystic focus posteriorly. Pelvic ultrasound at the same time reported a 3.0 likely hemorrhagic cyst
in the right ovary with suspected early or partial torsion. Patient was started on Zosyn and admitted for further evaluation and management.
Pt was seen after ovarian abscess drainage, reports feeling better. Denies chest pain, SOB, fever and chills.
Past History
Past Medical History: CVA (TIA), NIDDM and Other (Obesity, MAMIE)
Past Surgical History: Cholecystectomy
Allergy History:
No Known Allergies Allergy (Unverified 07/22/23 16:36)
Medications Reviewed: Yes
Social History
Tobacco: Non-Smoker
Alcohol: None
Drug: None
Personal:
Living: With Family
Family History
Family History: Not Pertinent
Review of Systems
Review of Systems
General: Negative Fever, Chills or Change in Appetite
Cardiovascular: Negative Chest Pain, Dyspnea, Edema or Palpitations
Respiratory: Negative Dyspnea
Gasteroenterology: Negative Nausea or Vomiting
Genital / Urological: Negative Dysuria or Flank Pain
Skin / Hair / Nails: Negative Urticaria, Rash, Lesions or Nail Changes
All systems: All other systems were reviewed and were negative
Vital Signs
Temp Pulse Resp BP Pulse Ox
98.6 F 85 18 97/43 99
08/11/24 10:44 08/11/24 10:44 08/11/24 10:44 08/11/24 10:44 08/11/24 10:44
Physical Exam
Physical Exam
Constitutional: No Acute Distress, Comfortable and Non-toxic
Cardiovascular: Regular Rate and S1/S2; Negative Murmur or Rub
Pulmonary: Clear and Symmetric; Negative Wheezes, Rales or Rhonchi
Gastrointestinal: Soft, Non Tender, Normal Bowel Sounds and Other (Obese abdomen)
Genito-Urinary: Other (Right Ovarian abscess drain in place with minimal serosanguinous fluid); Negative Suprapubic Tenderness or CVA Tenderness
Extremities: Negative Edema
Skin: Warm and Dry; Negative Rash or Jaundice
Neurological: Awake and AO x 3
Psychological: Calm
Lab / Diagnostic Study Results
08/11/24 08:24
08/11/24 08:24
Abs Immat Gran (auto) 0.5 10^3/uL (0-0.05) H 08/11/24 08:24
Absolute Neuts (auto) 12.9 10^3/uL (1.4-6.5) H 08/11/24 08:24
Absolute Lymphs (auto) 2.9 10^3/uL (1.2-3.4) 08/11/24 08:24
Absolute Monos (auto) 1.1 10^3/uL (0.1-0.6) H 08/11/24 08:24
Absolute Basos (auto) 0.1 10^3/uL (0-0.2) 08/11/24 08:24
Immature Gran % 3.0 % (0-0.5) H 08/11/24 08:24
Neutrophils % 73.2 % (42.2-75.2) 08/11/24 08:24
Lymphocytes % 16.5 % (20.5-51.1) L 08/11/24 08:24
Monocytes % 6.1 % (1.7-9.3) 08/11/24 08:24
Eosinophils % 0.6 % (0-6) 08/11/24 08:24
Basophils % 0.6 % (0-2) 08/11/24 08:24
Lactic Acid 1.2 mmol/L (0.7-2.0) 08/09/24 00:47
Ur Squamous Epith Cells >30 /LPF (Few) 08/09/24 00:35
Microbiology Results
Micro:
08/09/24 00:35 Blood Culture - Preliminary
Blood/Venous No Growth in 48 hours- Final report to follow
08/09/24 00:35 Urine Culture - Final
Urine
08/09/24 10:20 Chlamydia trachomatis (PCR) - Final
Urine Neisseria gonorrhoeae (PCR) - Final
Assessment / Plan
38-year-old female with PMH of DM type II, who presented to the ED on 08/09 with 3-day history of right-sided abdominal pain.
Assessment/plan:
#Sepsis secondary to ovarian abscess.
Leukocytosis, tachycardic, tachypneic.
#Right ovarian hemorrhagic cyst
#UTI
#Possible ovarian torsion
#Possible nephrolithiasis
- test negative.
- Leukocytosis improved, patient is afebrile.
- CT abdomen/pelvis 08/09 with 3.6 cm cystic focus in posterior right ovary unchanged on repeat CT 08/11.
- Transvaginal ultrasound 08/09 with adequate arterial and venous Doppler in both ovaries; ovarian torsion less likely.
- Neisseria gonorrhea and chlamydia trachomatis PCR negative.
- UA with pyuria, ketonuria, glucosuria, bacteriuria blood and RBC with amorphous crystals seen; Possible passed urinary stone.
- Blood culture x1 08/09 in progress NGTD.
- Consider repeat blood cultures x 2, from 2 different sites, 30 minutes apart if fever returns since patient has been on Zosyn.
- Urine culture likely contaminated.
- Stop Zosyn.
- Start ceftriaxone 2 g IV Q24H + Doxy 100 mg PO Q12H + metronidazole 500 mg PO Q12H.
- Ovarian cyst drainage with 20cc of pus drained by IR.
- Ovarian cyst fluid chlamydia and gonorrhea PCR.
- Follow drian output.
- Follow fever curve.
Care Review
Plan reviewed with: Physician, Other Provider (Dr. Blackman) and Radiologist
--- NOTE | 2024-08-11 14:48 | W.PN.OBG.DWH ---
Today's Communication / Plan
-
IR to drain RIGHT ovarian cyst
Hold on removing IUC until this is done
Agree with ID consult
Above discussed with Dr Weiner
Time spent in evaluation, personal review of CT scan with radiologist and encounter with patient required 0ver 60 minutes
Assessment/Plan
-
1. Right adnexal cyst
2. Sepsis- causes include UTI/pyleo, TOA is a consideration. Primary service did not feel UTI was strong dx since she is relatively asymptomatic from that perspective.
-GC/CT negative. awaiting blood cultures
-Would recommend continuing IV abx Zosyn IV
-Agree with plan to consult ID
-may need to remove IUC, although with patient's anemia, am concerned that her menorrhagia will return, which is a worry given her anemia.
-Per Hospitalist, will allow IR to proceed with attempt to drain, if drains infectious material, would remove IUC
Objective Data
-
Laboratory Results
08/11/24 08:24
08/11/24 08:24
Vital Signs
Temp Pulse Resp BP Pulse Ox
98.6 F 85 18 97/43 99
08/11/24 10:44 08/11/24 10:44 08/11/24 10:44 08/11/24 10:44 08/11/24 10:44
--- NOTE | 2024-08-11 16:23 | W.PN.UPDATE ---
Update Note
Progress Note Update
CT guided aspiration, yielding 20 cc of purulent fluid. Placed an 8.5 Fr drain.
Fluid sent for C+S, chlamydia and gonorrhea PCR.
[2024-08-11] MEDS: FERRLECIT 110 MG IV (17:08)
[2024-08-11] MEDS: STERILE WATER FOR INJECTION 20 ML IV (17:09)
[2024-08-11] MEDS: ROCEPHIN 2000 MG IV (17:09)
[2024-08-11] MEDS: FLAGYL 500 MG PO (17:09)
[2024-08-11 17:32] LABS: Glucose - Point of Care 152 mg/dl (70-99)
[2024-08-11] MEDS: NOVOLOG FLEXPEN-MODERATE RESISTANCE 1 UNITS SC (17:54)
[2024-08-11] MEDS: VIBRAMYCIN 100 MG PO (21:23)
[2024-08-11] MEDS: SENOKOT-S 1 TABLET PO (21:23)
[2024-08-11] MEDS: MIRALAX 17 GRAMS PO (21:23)
[2024-08-11 21:57] LABS: Glucose - Point of Care 191 mg/dl (70-99)
[2024-08-11] MEDS: TYLENOL 650 MG PO (22:16)
[2024-08-12] VITALS (7 sets, daily range): BP systolic 96–109; BP diastolic 44–69; BMI 40.5
[2024-08-12 02:37] LABS: Glucose - Point of Care 208 mg/dl (70-99)
[2024-08-12] MEDS: FLAGYL 500 MG PO ×2 (03:09→15:47)
[2024-08-12] MEDS: NSS 250 IV (03:09)
[2024-08-12 03:43] LABS: % Basophils 0.5 % (0-2); % Eosinophils 0.6 % (0-6); % Immature Granulocytes 4.5 % (0-0.5); % Lymphocytes 14.7 % (20.5-51.1); % Monocytes 5.2 % (1.7-9.3); % Neutrophils 74.5 % (42.2-75.2); Absolute Basophils 0.1 10^3/uL (0-0.2); Absolute Eosinophils 0.1 10^3/uL (0-0.7); Absolute Immature Granulocytes 0.7 10^3/uL (0-0.05); Absolute Lymphocytes 2.4 10^3/uL (1.2-3.4); Absolute Monocytes 0.9 10^3/uL (0.1-0.6); Absolute Neutrophils 12.3 10^3/uL (1.4-6.5); Hematocrit 26.6 % (37.0-47.0); Hemoglobin 7.8 g/dL (12.0-16.0); Mean Corp Hgb Conc. 29.3 g/dL (33.0-37.0); Mean Corpuscular Hgb 18.1 pg (27.0-31.0); Mean Corpuscular Volume 61.7 fL (81.0-99.0); Nucleated Red Blood Cells % 0.9 %; Platelet Count 352 10^3/uL (130-400); Red Blood Cell Count 4.31 10^6/uL (4.20-5.40); Red Cell Dist. Width 20.5 % (11.5-14.5); White Blood Cell Count 16.5 10^3/uL (4.8-10.8)
[2024-08-12 03:58] LABS: Blood Urea Nitrogen 8 mg/dl (7-17); Calcium 8.7 mg/dl (8.4-10.2); Carbon Dioxide 27 mmol/L (22-30); Chloride 104 mmol/L (98-107); Estimated Creatinine Clearance > 125 ml/min; Glucose 200 mg/dl (70-99); Sodium 139 mmol/L (135-145); eGFR > 60.00
[2024-08-12] MEDS: NOVOLOG FLEXPEN-MODERATE RESISTANCE 1 UNITS SC ×2 (08:55→17:07)
[2024-08-12] MEDS: VIBRAMYCIN 100 MG PO ×2 (08:55→19:30)
[2024-08-12 08:56] LABS: Glucose - Point of Care 193 mg/dl (70-99)
[2024-08-12] MEDS: SENOKOT-S 1 TABLET PO ×2 (08:56→19:30)
[2024-08-12] MEDS: LOW STRENGTH ASPIRIN 81 MG PO (08:56)
[2024-08-12] MEDS: LANTUS 0.12 UNITS SC (08:57)
--- NOTE | 2024-08-12 10:08 | W.PN.ID1 ---
Date of Service
Date of Service: August 12, 2024
Today's Communication
- continue with ceftriaxone 2 g IV Q24H + doxycycline 100 mg PO Q12H + metronidazole 500 mg PO Q12H
- likely transition to oral therapy in the next day or two pending gram stains
Assessment / Plan
Likely Ovarian Abscess
Class III obesity
IDU - progesterone
- abscess cultures for aerobic, anaerobic and gc switched to culture - gram stains pending
- blood cultures x2
- urine GC chlamydia negative however can be a false negative
- EKG for QTc assessment
- continue with ceftriaxone 2 g IV Q24H + doxycycline 100 mg PO Q12H + metronidazole 500 mg PO Q12H
- likely transition to oral therapy in the next day or two pending gram stains
- note that ovarian abscesses/tuboovarian abscesses can be spontaneous and due to endogenous gifty. They are often associated with IUDs and if the patient is improving and actinomyces not found the device could be retained from ID perspective.
Given her marked anemia, there is some real benefit (including to quality of life) to retaining the IUD. Final decision will be made by Book Sewing Machine Operator
Chief Complaint
-: Other (ovarian abscess)
Subjective / Review of Systems
afebrile
bp stable
no events overnight
reports abdominal pain has resolved
Vital Signs / Physical Exam
Vital Signs
Vital Signs
Temp Pulse Resp BP Pulse Ox
98.4 F 76 18 96/61 98
08/12/24 07:30 08/12/24 07:30 08/12/24 07:30 08/12/24 07:30 08/12/24 07:30
Physical Exam
Constitutional: No Acute Distress and Obese
Cardiovascular: Regular Rate and S1/S2; Negative Murmur or Rub
Pulmonary: Clear and Symmetric; Negative Wheezes or Rales
Gastrointestinal: Soft, Non Tender, Non Distended and Normal Bowel Sounds
Skin: Warm and Dry; Negative Rash or Jaundice
Objective Data
Lab Data
Lab Results
08/12/24 03:20
08/12/24 03:20
Estimated Creat Clear > 125 ml/min 08/12/24 03:20
Lactic Acid 1.2 mmol/L (0.7-2.0) 08/09/24 00:47
Total Bilirubin 0.9 mg/dl (0.2-1.3) 08/11/24 08:24
AST 23 U/L (14-36) 08/11/24 08:24
ALT 19 U/L (0-35) 08/11/24 08:24
Alkaline Phosphatase 114 U/L (38-126) 08/11/24 08:24
Most recent labs reviewed.
Micro Results:
08/09/24 00:35 Blood Culture - Preliminary
Blood/Venous No Growth in 72 hours- Final report to follow
08/11/24 16:15 GC Screen - Pending
Endo-cervical
08/11/24 16:15 Wound Culture - Pending
Cyst Gram Stain - Pending
08/11/24 16:15 Anaerobic Culture - Pending
Ovarian Cyst
08/09/24 00:35 Urine Culture - Final
Urine
08/09/24 10:20 Chlamydia trachomatis (PCR) - Final
Urine Neisseria gonorrhoeae (PCR) - Final
[2024-08-12 11:19] LABS: Glucose - Point of Care 357 mg/dl (70-99)
[2024-08-12] MEDS: NOVOLOG FLEXPEN-MODERATE RESISTANCE 9 UNITS SC (11:22)
--- NOTE | 2024-08-12 13:09 | W.PN.HOSP.TC ---
Today's Communication/Plan
-
Await final culture data
Monitor THO drain output
Continue with antibiotics per ID
Trend hemoglobin
IV iron
Bowel regimen
Assessment / Plan
Assessment / Plan
38yo F with Hx of DM, cholecystectomy 6 months ago came with sudden onset of lower abdominal pain and fever 3 days before admission. On admission found some RUQ tenderness and CT abd with R ovarian cyst as well as significant pyuria
A/P:
#Sepsis on admission can be 2/2 R Tubovarian abscess
#Bilirubin and Alk.phos elevation
ANALYTICAL TECHNICIAN: low concern for torsion, recommend repeat CT 08/10/24 to further assess
Repeat CT abdomen pelvis with persistent asymmetric enlargement of right ovary with 3.7 centimeter cystic focus posteriorly.
NEg for Chlamydia and gonorrhea PCR
test neg
follow Ucx- contamined
Only one set of Bcx sent in ED-remains negative x 72h
US RUQ prior cholecystectomy without evidence of biliary duct dilatation
White count seems to be downtrending
Last fever noted on 08/09 at 23:29
Status post drainage of the right ovarian cyst found to be abscess collection with 20 cc of purulent drainage was noted. Status post drain placement by IRAD .
Preliminary fluid collection from 08/11 gram-positive cocci
Currently on ceftriaxone, doxycycline and Flagyl
Appreciate ID Justin
#Hypokalemia
-replete/prn
#Hx of TIA
not on Lipitor - start
#MAMIE
-severely low iron sats
-start IV iron
- Patient denies any bright red blood per rectum or melanotic stools or hematuria
- No luminal bleeding has been noted so far
- Awaiting bowel movements for heme test
# Constipation
- Start aggressive bowel regimen
#DM type 2 with unspecified complications
Decrease calorie intake
Accuchecks, Insulin SS, DM diet, check HgbA1c at 9.5
Started on Lantus
Unable to do metformin and just received IV contrast yesterday
may also benefit from education diabetic teaching
Last diabetic RN STAFF consult
#Morbid obesity
#Hepatic steatosis
#Hypokalemia
follow and replete as needed
DVT ppx lovenox
Full code
Discussed with patient and spouse at bedside in details
Anticipated Discharge: > 48 hours
Subjective/Interval History
-
Date of Service: August 12, 2024
denies abd pain
no bm for past 4-5 days
no nausea or vomiting
Objective Data
-
Labs:
Laboratory Results
08/12/24
03:20
WBC 16.5 H
Hgb 7.8 L
Hct 26.6 L
Plt Count 352
Sodium 139
Potassium 4.0
Chloride 104
Carbon Dioxide 27
BUN 8
Creatinine 0.5 L
Glucose 200 H
Calcium 8.7
Vital Signs:
Vital Signs
Temp Pulse Resp BP Pulse Ox
98.6 F 89 18 109/55 99
08/12/24 10:54 08/12/24 10:54 08/12/24 10:54 08/12/24 10:54 08/12/24 10:54
I&O
08/11/24 08/12/24 08/13/24
06:59 06:59 06:59
Intake Total 1420 / 1420 320 / 320
Output Total 235 / 235
Balance 1420 / 1420 85 / 85
Physical Exam
-
General: No Apparent Distress and Morbidly Obese
HEENT: Normocephalic
Respiratory: Clear to Auscultation
GI: Soft, Nontender, Nondistended, Normal Bowel Sounds and Other (tho drain RLQ with few cc of serosanginous drainage noted )
Musculoskeletal: No Clubbing, No Cyanosis and No Edema
Neuro: Awake, Alert, Oriented and AO x 3
Psych: Calm
Data Reviewed
-
Total Time Spent with Patient (in minutes): 55
[2024-08-12] MEDS: FERRLECIT 110 MG IV (13:19)
--- NOTE | 2024-08-12 13:33 | W.PN.OBG.DWH ---
Today's Communication / Plan
-
await IR input re timing of drain removal
Assessment/Plan
-
adnexal cyst/abscess, s/p drain placement
cxs, gram stain, gc/chlam pending
sepsis
on ceftriaxone, flagyl, doxycycline
anticipate dc home on po abx
anemia with IUD
recommend f/up visit in clinic 4-6 wks
Subjective Data
-
no complaints, 18 yo son Nemesio at bedside
no pain, no fever
Objective Data
-
Laboratory Results
08/12/24 03:20
08/12/24 03:20
Vital Signs
Temp Pulse Resp BP Pulse Ox
98.6 F 89 18 109/55 99
08/12/24 10:54 08/12/24 10:54 08/12/24 10:54 08/12/24 10:54 08/12/24 10:54
<1 cc serous fluid in BENSON drain
lungs cl
cor
abd obese soft, nt, drain in place
--- NOTE | 2024-08-12 13:51 | PN.DE.MGMTRT ---
Insulin Management
- -
08/12/2024 Diabetes Management Consult
Patient admitted 08/09 with R sided abdominal pain, R adnexal cyst. PMH, diabetes, cva/tia, iron def. anemia, obesity. Prior to admission was taking insulin (patient not sure what insulin) ss ac. A1C is 9.5%, cr .5, eGFR > 60.
Patient is cypriot speaking, son at bedside willing to interpret. Patient is awake, alert and oriented no pain. States she has diabetes ~ 15 years.
Currently receiving 12 units lantus in AM with ss moderate coverage AC. Glucose range 152 to 367. Will increase AM lantus to 15 units, start novolog 4 units AC, continue moderate corrective insulin.
Provided diabetes booklet in [place].
Discussed with nurse.
Will follow.
Diabetes History
- -
Type of Diabetes: 2 requiring insulin
Pre-Admission Diabetes Regimen
08/12/24
03:20
Creatinine 0.5 L
Lab Results
Hemoglobin A1c 9.5 % (4.0-5.6) H 08/09/24 00:35
Insulin Pump Settings
IP Diabetes Regimen
08/11/24 08/11/24 08/12/24
17:31 21:55 02:36
Glucose
POC Glucose 152 H 191 H 208 H
08/12/24 08/12/24 08/12/24
03:20 08:54 11:17
Glucose 200 H
POC Glucose 193 H 357 H
Patient Education
--- NOTE | 2024-08-12 14:46 | CM ---
Chart reviewed and director of casework spoke with patient and son at bedside, patient's son reports that patient is not new to insulin, and goes to the [facility].
Plan; Home with family.
[2024-08-12] MEDS: STERILE WATER FOR INJECTION 20 ML IV (15:47)
[2024-08-12] MEDS: ROCEPHIN 2000 MG IV (15:47)
[2024-08-12 16:14] LABS: Glucose - Point of Care 185 mg/dl (70-99)
[2024-08-12] MEDS: NOVOLOG FLEXPEN 4 UNITS SC (17:08)
[2024-08-12] MEDS: MIRALAX 17 GRAMS PO (19:28)
[2024-08-12 22:07] LABS: Glucose - Point of Care 164 mg/dl (70-99)
[2024-08-13 03:20] VITALS: BP 95/55
[2024-08-13] MEDS: FLAGYL 500 MG PO ×2 (03:21→10:47)
[2024-08-13 06:00] VITALS: BMI 40.2
--- NOTE | 2024-08-13 07:19 | PN.DE.MGMTRT ---
Insulin Management
- -
08/13/2024 Diabetes Management Consult Follow up
Patient admitted 08/09 with R sided abdominal pain, R adnexal cyst. PMH, diabetes, cva/tia, iron def. anemia, obesity. Prior to admission was taking insulin (patient not sure what insulin) [facility]. A1C is 9.5%, cr .5, eGFR > 60.
Patient is bruneian speaking, son at bedside willing to interpret. Patient is awake, alert and oriented no pain. States she has diabetes ~ 15 years.
Glucose range 164 to 357, 08/12. AC novolog 4 units started with dinner. Fasting glucose this AM 171.
AM lantus to increase to 15 units this AM, continue novolog 4 units AC, continue moderate corrective insulin.
Provided diabetes booklet in Ma[place].
Discussed with nurse.
Will follow.
Diabetes History
- -
Type of Diabetes: 2 requiring insulin
Pre-Admission Diabetes Regimen
Lab Results
Hemoglobin A1c 9.5 % (4.0-5.6) H 08/09/24 00:35
Insulin Pump Settings
IP Diabetes Regimen
08/12/24 08/12/24 08/12/24
08:54 11:17 16:13
POC Glucose 193 H 357 H 185 H
08/12/24
22:05
POC Glucose 164 H
Patient Education
[2024-08-13 07:22] LABS: Glucose - Point of Care 171 mg/dl (70-99)
[2024-08-13 07:30] VITALS: BP 121/64
[2024-08-13] MEDS: VIBRAMYCIN 100 MG PO (08:14)
[2024-08-13] MEDS: LOW STRENGTH ASPIRIN 81 MG PO (08:14)
[2024-08-13] MEDS: LANTUS 0.15 UNITS SC (08:17)
[2024-08-13] MEDS: NOVOLOG FLEXPEN-MODERATE RESISTANCE 1 UNITS SC (08:17)
[2024-08-13] MEDS: SENOKOT-S 1 TABLET PO (08:17)
[2024-08-13] MEDS: NOVOLOG FLEXPEN 4 UNITS SC ×2 (08:18→12:55)
[2024-08-13 08:45] LABS: % Basophils 0.6 % (0-2); % Eosinophils 1.2 % (0-6); % Immature Granulocytes 5.1 % (0-0.5); % Lymphocytes 15.8 % (20.5-51.1); % Neutrophils 72.3 % (42.2-75.2); Absolute Basophils 0.1 10^3/uL (0-0.2); Absolute Eosinophils 0.2 10^3/uL (0-0.7); Absolute Immature Granulocytes 0.7 10^3/uL (0-0.05); Absolute Lymphocytes 2.2 10^3/uL (1.2-3.4); Absolute Monocytes 0.7 10^3/uL (0.1-0.6); Absolute Neutrophils 10.1 10^3/uL (1.4-6.5); Hematocrit 27.9 % (37.0-47.0); Hemoglobin 8.3 g/dL (12.0-16.0); Mean Corp Hgb Conc. 29.7 g/dL (33.0-37.0); Mean Corpuscular Hgb 18.7 pg (27.0-31.0); Mean Corpuscular Volume 62.8 fL (81.0-99.0); Mean Platelet Volume 9.8 fL (7.4-10.4); Nucleated Red Blood Cells % 0.6 %; Platelet Count 405 10^3/uL (130-400); Red Blood Cell Count 4.44 10^6/uL (4.20-5.40); Red Cell Dist. Width 21.9 % (11.5-14.5); White Blood Cell Count 13.9 10^3/uL (4.8-10.8)
[2024-08-13 09:30] LABS: Blood Urea Nitrogen 9 mg/dl (7-17); Calcium 8.7 mg/dl (8.4-10.2); Carbon Dioxide 25 mmol/L (22-30); Chloride 104 mmol/L (98-107); Estimated Creatinine Clearance > 125 ml/min; Glucose 162 mg/dl (70-99); Potassium 3.8 mmol/L (3.5-5.1); Sodium 138 mmol/L (135-145); eGFR > 60.00
--- NOTE | 2024-08-13 10:03 | W.PN.ID1 ---
Date of Service
Date of Service: August 13, 2024
Today's Communication
- abscess cultures for aerobic, anaerobic and gc switched to culture - group A strep, could be polymicrobial - if actinomyces were IDd then would recommend IUD removal
- start Levofloxacin 750 mg (higher dosing based on weight) and metronidazole 500 mg PO TID (increased frequency based on weight) for at least another 14 days - course could be extended PRN
- I will continue to follow up cultures periodically
- follow up with Ob; ID can also see patient in the office PRN if issues arise
Assessment / Plan
Likely Ovarian Abscess
Class III obesity
IDU - progesterone
- abscess cultures for aerobic, anaerobic and gc switched to culture - group A strep, could be polymicrobial - if actinomyces were IDd then would recommend IUD removal
- blood cultures x2 - no growth to date
- urine GC chlamydia negative however can be a false negative
- QTc 450
- drain fluid is clear, minimal, could likely be removed
- start Levofloxacin 750 mg (higher dosing based on weight) and metronidazole 500 mg PO TID (increased frequency based on weight) for at least another 14 days - course could be extended PRN
- recommend tight glucose control - reviewed with patient who indicates she is taking insulin at home
- follow up in ID clinic with cbc, bmp, esr and crp before the visit
Chief Complaint
-: Other (ovarian abscess)
Subjective / Review of Systems
afebrile
bp stable
no complaints
abdominal pain has resovled x48 hours
Vital Signs / Physical Exam
Vital Signs
Vital Signs
Temp Pulse Resp BP Pulse Ox
99.3 F 79 22 121/64 99
08/13/24 07:30 08/13/24 07:30 08/13/24 07:30 08/13/24 07:30 08/13/24 07:30
Physical Exam
Constitutional: No Acute Distress
Cardiovascular: Regular Rate and S1/S2; Negative Murmur or Rub
Pulmonary: Clear and Symmetric; Negative Wheezes or Rales
Gastrointestinal: Soft, Non Tender, Non Distended and Normal Bowel Sounds
Skin: Warm and Dry; Negative Rash or Jaundice
Objective Data
Lab Data
Lab Results
08/13/24 07:56
08/13/24 07:56
Estimated Creat Clear > 125 ml/min 08/13/24 07:56
Lactic Acid 1.2 mmol/L (0.7-2.0) 08/09/24 00:47
Total Bilirubin 0.9 mg/dl (0.2-1.3) 08/11/24 08:24
AST 23 U/L (14-36) 08/11/24 08:24
ALT 19 U/L (0-35) 08/11/24 08:24
Alkaline Phosphatase 114 U/L (38-126) 08/11/24 08:24
Most recent labs reviewed.
Micro Results:
08/09/24 00:35 Blood Culture - Preliminary
Blood/Venous No Growth in 4 days- Final report to follow
08/11/24 16:15 GC Screen - Preliminary
Endo-cervical Culture in Progress
08/11/24 16:15 Anaerobic Culture - Preliminary
Ovarian Cyst Culture pending. Anaerobic cultures are examined after 3
days incubation. Additional information to follow.
08/11/24 16:15 Wound Culture - Preliminary
Cyst Gram Stain - Preliminary
08/09/24 00:35 Urine Culture - Final
Urine
08/09/24 10:20 Chlamydia trachomatis (PCR) - Final
Urine Neisseria gonorrhoeae (PCR) - Final
Care Review
Plan reviewed with: Physician (Dr Nelson - drain removal)
[2024-08-13] MEDS: LEVAQUIN 750 MG PO (10:47)
[2024-08-13 11:41] VITALS: BP 110/63
[2024-08-13 12:23] LABS: Glucose - Point of Care 234 mg/dl (70-99)
--- NOTE | 2024-08-13 12:30 | W.PN.HOSP.TC ---
Today's Communication/Plan
-
po abx on dc
keira mohamud f/u
insulin regimen
Assessment / Plan
Assessment / Plan
38yo F with Hx of DM, cholecystectomy 6 months ago came with sudden onset of lower abdominal pain and fever 3 days before admission. On admission found some RUQ tenderness and CT abd with R ovarian cyst as well as significant pyuria
A/P:
#Sepsis on admission can be 2/2 R Tubovarian abscess
#Bilirubin and Alk.phos elevation
ROUSTABOUT CREW LEADER: low concern for torsion, recommend repeat CT 08/10/24 to further assess
Repeat CT abdomen pelvis with persistent asymmetric enlargement of right ovary with 3.7 centimeter cystic focus posteriorly.
NEg for Chlamydia and gonorrhea PCR
test neg
follow Ucx- contamined
Only one set of Bcx sent in ED-remains negative so far
US RUQ prior cholecystectomy without evidence of biliary duct dilatation
White count seems to be downtrending
Last fever noted on 08/09 at 23:29
Status post drainage of the right ovarian cyst found to be abscess collection with 20 cc of purulent drainage was noted. Status post drain placement by IRAD .
Preliminary fluid collection from 08/11 gram-positive cocci Group A strep
Currently on ceftriaxone, doxycycline and Flagyl and now transitioned to Levaquin/flagyl. Qtc 450 acceptable.
Jarett drain with barely any output-discussed with Dr. Dillard and recommend he continue with JARETT drain to prevent reoccurrence of abscess. Patient will need to follow-up outpatient with interventional radiology for tube removal. continue to flush with
10 cc NS each day and keep track of the drainage amount.
Appreciate ID Recs
#Hypokalemia
-replete/prn
#Hx of TIA
cont asa
#MAMIE
-severely low iron sats
-start IV iron and po iron on dc
- Patient denies any bright red blood per rectum or melanotic stools or hematuria
- No luminal bleeding has been noted so far
- Had bm yesterday but RN was not informed. Hgb uptrended to 8.3
# Constipation
- Start aggressive bowel regimen
-had bm yesterday
#DM type 2 with unspecified complications
Decrease calorie intake
Accuchecks, Insulin SS, DM diet, check HgbA1c at 9.5
Started on Lantus 15u AM and 4u aspart -poc improved
may also benefit from education diabetic teaching
Last diabetic COM WRITER consult
#Morbid obesity
#Hepatic steatosis
#Hypokalemia
follow and replete as needed
DVT ppx lovenox
Full code
d/w with IRAD and ID and ROUSTABOUT CREW LEADER and DM COM WRITER .
More than 30 minutes spent in discharge including
Final examination of the patient
Summarizing hospital stay
Instructions for continuing care to all relevant caregivers
Preparation of discharge records, prescriptions, and referral forms
Total time spent (in minutes): 52
Anticipated Discharge: Today
Subjective/Interval History
-
Date of Service: August 13, 2024
Seen and examined using per diem interpreter Chamate sarah
denies abd pain
tolerating diet
Objective Data
-
Labs:
Laboratory Results
08/13/24
07:56
WBC 13.9 H
Hgb 8.3 L
Hct 27.9 L
Plt Count 405 H
Sodium 138
Potassium 3.8
Chloride 104
Carbon Dioxide 25
BUN 9
Creatinine 0.5 L
Glucose 162 H
Calcium 8.7
Vital Signs:
Vital Signs
Temp Pulse Resp BP Pulse Ox
98.7 F 83 20 110/63 98
08/13/24 11:41 08/13/24 11:41 08/13/24 11:41 08/13/24 11:41 08/13/24 11:41
I&O
08/12/24 08/13/24 08/14/24
06:59 06:59 06:59
Intake Total 320 / 320 1680 / 1680
Output Total 235 / 235
Balance / 1675 / 1675
Physical Exam
-
General: No Apparent Distress and Morbidly Obese
HEENT: Normocephalic
Respiratory: Clear to Auscultation
GI: Soft, Nontender, Nondistended, Normal Bowel Sounds and Other (jarett drain RLQ )
Musculoskeletal: No Clubbing, No Cyanosis and No Edema
Neuro: Awake, Alert, Oriented and AO x 3
Psych: Calm
[2024-08-13] MEDS: NOVOLOG FLEXPEN-MODERATE RESISTANCE 3 UNITS SC (12:55)
--- NOTE | 2024-08-13 14:04 | W.DCSUMMARY ---
Discharge Summary
Discharge Data
Date of Admission: 08/09/24
Date of Discharge: 08/13/24
-
Pending Results: No
Hospital Course
38yo F with Hx of DM, cholecystectomy 6 months ago, hepatic steatosis, morbid obesity to excess calories, iron deficiency anemia, presenting with severe abdominal pain. CT abdomen pelvis was done which showed cyst ovarian. Gynecology was
consulted. Patient underwent pelvic ultrasound. There was low concern for torsion. Was concern for infection patient was started on broad-spectrum antibiotics. Urine culture was contaminated. Only 1 set of blood culture was sent and was found
to be negative. Ultrasound right upper quadrant without evidence of biliary duct dilatation. Repeat CT abdomen pelvis with persistent enlargement of right ovary. Interventional radiology was consulted and patient underwent drainage of the cyst
which showed 20 cc of purulent fluid. Infectious disease was consulted. Right lower quadrant BENSON drain was placed by [facility]. Patient antibiotics were adjusted per infectious disease recommendation. Patient white count continue to trend drawn.
Patient continued to remain afebrile and fever curve down trended. Patient was able to tolerate diet. Patient also with uncontrolled diabetes and was evaluated by diabetic nurse practitioner. Patient was started on Lantus dose was increased and
Premeal insulin was also added. Patient also received diabetic education. Patient blood glucose improved. Patient also with iron deficiency anemia and received IV iron during hospitalization. Constipation resolved with bowel movements.
Hemoglobin remained stable. Discussed with interventional radiology and plan will be to continue with BENOSN drain on discharge patient will to follow-up outpatient with them in the office for BENSON drain removal. Patient will also need to follow-up with
infectious disease and primary physician and gynecology as outpatient.
Discharge Plan
-
Patient Disposition: Home (Routine Discharge)
Discharge Diagnosis/Procedures: Sepsis secondary to tubo-ovarian abscess status post drainage
Hypokalemia
Iron deficiency anemia
Diabetes mellitus uncontrolled
Diet: Low Cholesterol and Diabetic, Carb Controlled
Activity: As tolerated
Driving Restrictions: As prior to admission
Blood Work: cbc, bmp, esr and crp in 7-10 days via primary doctor.
Activity Restrictions/Additional Instructions:
Patient will need to follow-up outpatient with interventional radiology for tube removal.
continue to flush with 10 cc NS each day and keep log of the drainage amount on daily basis.
Instructions: How to care for a closed suction drain
Referrals:
Gregory Dillard MD [Active] - in one week (call to make appointment for BENSON tube removal )
UNKNOWN - PT DOES,NOT KNOW [Family Provider] - in less than 1 week
Griselda Alvarez MD [Active] - in two weeks (call to make appointment)
Adeline Blair MD [Active] - in four to six weeks (call to make appointment)
Prescriptions:
New
metronidazole 500 mg Tablet
500 mg PO Q8 14 Days Qty: 42 0RF
levofloxacin 750 mg Tablet
750 mg PO DAILY Qty: 13 0RF
insulin aspart U-100 [Novolog FlexPen U-100 Insulin] 100 unit/mL (3 mL) Insulin Pen
4 unit SC AC Qty: 5 0RF
insulin glargine [Basaglar KwikPen U-100 Insulin] 100 unit/mL (3 mL) Insulin Pen
15 unit SC DAILY Qty: 5 0RF
Continued
ferrous sulfate 325 mg (65 mg iron) Tablet
325 mg PO DAILY
aspirin 81 mg Tablet,Chewable
81 mg PO DAILY
insulin aspart U-100 100 unit/mL (3 mL) Insulin Pen
1 sliding scale dose SC DIRECTED
Discharge Orders:
Discharge Patient (As Directed); Ordered 08/13/24
Ordered By: Stanley Cooley
Discharge Date and Time
Discharge Date/Time: 08/13/24 15:33
Print Language: INDONESIAN
--- NOTE | 2024-08-13 14:12 | CM ---
Chart reviewed and plan is to home with family when stable.
Plan; Home with family.
--- NOTE | 2024-08-13 15:00 | PTCARENOTE ---
Addendum entered by Farhana Conroy RN 08/13/24 15:20:
Drain care instructions provided to patient and patient's . materials given to patient. patient states verbal understanding. patient prepared for d/c
Original Note:
patient going to d/c lounge. D/c instructions reviewed with patient. Drain teaching will be taught in d/c lounge when her arrives. preparing for d/c
== END 2024-08-13 15:33 | disposition home or self-care (01) | DRG 872 ==
LOC: 4 WEST ACU 05:14
PROVIDERS: Emergency Medicine; Internal Medicine; Radiology Vascular & Interventional Radiology; ADMITTING PHYSICIAN Hospitalist; ATTENDING PHYSICIAN Hospitalist; CONSULT PHYSICIAN Obstetrics & Gynecology; CONSULT PHYSICIAN Student in an Organized Health Care Education/Training Program; EMERGENCY PHYSICIAN Student in an Organized Health Care Education/Training Program
PROC: 0W9J30Z Drainage of Pelvic Cavity with Drainage Device, Percutaneous Approach (ICD-10-PCS; 2024-08-11)
DX: A41.9 Sepsis, unspecified organism (principal); N70.93 Salpingitis and oophoritis, unspecified; D50.9 Iron deficiency anemia, unspecified; E11.65 Type 2 diabetes mellitus with hyperglycemia; Z79.82 Long term (current) use of aspirin; K59.00 Constipation, unspecified; Z86.73 Personal history of transient ischemic attack (TIA), and cerebral infarction without residual deficits; Z79.4 Long term (current) use of insulin; E66.01 Morbid (severe) obesity due to excess calories; K76.0 Fatty (change of) liver, not elsewhere classified; Z90.49 Acquired absence of other specified parts of digestive tract
CPT/HCPCS: 49406; 74177; 76700; 76830; 76856; 80048; 80053; 81003; 81015; 82248; 82728; 82962; 83036; 83540; 83550; 83605; 83615; 83690; 83735; 84703; 85025; 85045; 86850; 86900; 86901; 87040; 87070; 87075; 87077; 87081; 87086; 87147; 87205; 87491; 87591; 93005; 96361; 96365; 99152; 99153; 99285; J2916; Q9967